=== PATIENT | female | born 1975 | race Caucasian/White ===

== ENCOUNTER 2016-12-15 08:12 | Emergency (ER) | payer MEDICAID, OTHER ==
[2016-12-15 08:23] VITALS: RESP 18; TEMP 98.5
[2016-12-15 08:34] VITALS: BP 120/78; PULSE 88; O2SAT 96
== END 2016-12-15 09:11 | disposition home or self-care (01) | DRG 153 ==
LOC: ED 08:12
DX: H66.92 Otitis media, unspecified, left ear (principal); K05.10 Chronic gingivitis, plaque induced
CPT/HCPCS: 99282; 99283

== ENCOUNTER 2017-09-16 21:03 | Emergency (ER) | payer OTHER ==
[2017-09-16 21:46] VITALS: BP 117/80; PULSE 108; RESP 20; TEMP 97.6; O2SAT 97
[2017-09-16 22:09] LABS: BASOPHILS % (AUTO) 1 % (0-3); EOSINOPHILS % (AUTO) 0 % (0-9); HEMATOCRIT 41 % (35-47); MEAN CORPUSCULAR HGB CONC 33.1 gm/dl (32.0-36.0); MEAN CORPUSCULAR VOLUME 91 fL (81-99); MONOCYTES % (AUTO) 7.8 % (0-12); NEUTROPHILS % (AUTO) 82.5 % (37-80)
== END 2017-09-16 22:20 | disposition home or self-care (01) ==
LOC: ED 21:03
DX: R50.9 Fever, unspecified (principal)
CPT/HCPCS: 85025; 87430; 87804; 99282

== ENCOUNTER 2018-07-19 17:58 | Emergency (ER) | payer OTHER ==
[2018-07-19] MEDS ORDERED: HYDROXYZINE HYDROCHLORIDE 25 MG/ML SOL IM ONE (18:05)
[2018-07-19 18:08] VITALS: BP 121/88; PULSE 97; RESP 20; TEMP 97.5; O2SAT 95
[2018-07-19] MEDS ORDERED: KETOROLAC TROMETHAMINE 30 MG/ML SOL IM ONE ×2 (18:17→18:29)
[2018-07-19] MEDS ORDERED: KETOROLAC TROMETHAMINE 30 MG/ML SOL ONE (18:29)
[2018-07-19] MEDS ORDERED: APAP/HYDROCODONE 1 EACH TABLET ONE (18:29)
[2018-07-19] MEDS ORDERED: APAP/HYDROCODONE 1 EACH TABLET PO ONE (18:29)
== END 2018-07-19 19:00 | disposition home or self-care (01) ==
LOC: ED 17:58
DX: M54.2 Cervicalgia (principal); M25.512 Pain in left shoulder; M50.30 Other cervical disc degeneration, unspecified cervical region
CPT/HCPCS: 96372; 99282; J1885; A9270-GY